=== PATIENT | female | born 1940 | race Caucasian/White ===

== ENCOUNTER → 2018-10-21 | Outpatient (CLI) | payer MEDICARE, OTHER ==
[2018-10-21 18:43] LABS: Source, Urine Clean Catch
[2018-10-21 18:52] LABS: Bilirubin, Urine Neg (Neg); Blood, Urine Neg (Neg); Glucose Qualitative, Urine Neg (Neg); Ketones, Urine Neg (Neg); Leukocyte Esterase, Urine Neg (Neg); Nitrite, Urine Neg (Neg); Protein, Urine Neg (Neg); Urobilinogen, Urine NORM (Normal)
[2018-10-21 18:58] LABS: Appearance, Urine Clear (Clear); Color, Urine Yellow (P-Yellow)
== END | disposition home or self-care (01) ==
LOC: LAB SHORT 14:00 → LAB 14:00
PROVIDERS: Registered Nurse
DX: N39.0 Urinary tract infection, site not specified (principal)
CPT/HCPCS: 81003

== ENCOUNTER 2019-01-24 09:46 | Emergency (ER) | payer OTHER ==
[~2019-01-24] VITALS: Ht 157.5 cm; Wt 81.7 kg
[2019-01-24] MEDS ORDERED: DONE10 PO (12:37)
== END 2019-01-24 12:38 | disposition home or self-care (01) ==
LOC: ER 09:46
DX: S82.042A Displaced comminuted fracture of left patella, initial encounter for closed fracture (principal); F03.90 Unspecified dementia, unspecified severity, without behavioral disturbance, psychotic disturbance, mood disturbance, and anxiety; W19.XXXA Unspecified fall, initial encounter; Z87.891 Personal history of nicotine dependence
CPT/HCPCS: 29505; 73502; 73562-LT; 99283-25

== ENCOUNTER → 2019-03-05 | Outpatient (CLI) | payer OTHER ==
[~2019-03-05] MED LIST: ACET325 PO; Aspir 8181 MG PO; CALMOSEPTINE O3.5 GM TP; DIVA250ER PO; DONE10 PO; DONEPEZIL HCL10 MG PO; FOLI1 PO; IBUP400 PO; MEMA10 PO; Nitrofurantoin50 MG PO; SERT100 PO; TRAZ50 PO
[2019-03-07 13:49] LABS: Source, Urine Clean Catch
[2019-03-07 14:11] LABS: Bilirubin, Urine Neg (Neg); Blood, Urine 2+ (Neg); Glucose Qualitative, Urine Neg (Neg); Ketones, Urine 1+ (Neg); Leukocyte Esterase, Urine 3+ (Neg); Nitrite, Urine Neg (Neg); Protein, Urine 2+ (Neg); Urobilinogen, Urine NORM (Normal)
[2019-03-07 17:23] LABS: Appearance, Urine Hazy (Clear); Color, Urine Yellow (P-Yellow)
[2019-03-07 17:25] LABS: Amorphous Light ({null, 0-Heavy}); Bacteria Many /hpf; Red Blood Cells, Urine 0-2 /hpf (0-2); Squamous Epithelial Cells Rare /hpf (Few)
== END | disposition home or self-care (01) ==
LOC: LAB 08:40 → LAB SHORT 08:40
PROVIDERS: Registered Nurse
DX: N39.0 Urinary tract infection, site not specified (principal)
CPT/HCPCS: 81001; 87086

== ENCOUNTER → 2019-03-24 | Outpatient (CLI) | payer OTHER ==
[2019-03-24 19:31] LABS: Source, Urine Clean Catch
[2019-03-24 19:46] LABS: Bilirubin, Urine Neg (Neg); Blood, Urine 4+ (Neg); Glucose Qualitative, Urine Neg (Neg); Ketones, Urine Neg (Neg); Leukocyte Esterase, Urine 3+ (Neg); Nitrite, Urine Pos (Neg); Protein, Urine 2+ (Neg); Specific Gravity, Urine 1.015 (1.003-1.022); Urobilinogen, Urine NORM (Normal)
[2019-03-24 20:01] LABS: Appearance, Urine Hazy (Clear); Color, Urine Pale Yellow (P-Yellow)
[2019-03-24 20:03] LABS: Bacteria Many /hpf; Mucus Light (0-Heavy); Red Blood Cells, Urine 25-50 /hpf (0-2); Squamous Epithelial Cells Not Seen /hpf (Few); White Blood Cells, Urine TNTC /hpf (0-5)
== END | disposition home or self-care (01) ==
LOC: LAB 19:30 → LAB SHORT 19:30
PROVIDERS: Registered Nurse
DX: N39.0 Urinary tract infection, site not specified (principal)
CPT/HCPCS: 81001; 87077; 87086; 87186

== ENCOUNTER 2019-04-07 15:27 | Emergency (ER) | payer OTHER ==
[~2019-04-07] VITALS: Ht 167.6 cm; Wt 65.8 kg
[~2019-04-07 15:27] MED LIST changes: -ACET325 PO; -Aspir 8181 MG PO; -CALMOSEPTINE O3.5 GM TP; -DIVA250ER PO; -DONEPEZIL HCL10 MG PO; -FOLI1 PO; -IBUP400 PO; -MEMA10 PO; -Nitrofurantoin50 MG PO; -SERT100 PO; -TRAZ50 PO
[2019-04-07] MEDS ORDERED: ACET325 PO (15:58)
[2019-04-07] MEDS ORDERED: CALMOSEPTINE O3.5 GM TP (15:58)
[2019-04-07] MEDS ORDERED: Aspir 8181 MG PO (15:58)
[2019-04-07] MEDS ORDERED: DIVA250ER PO (15:59)
[2019-04-07] MEDS ORDERED: DONEPEZIL HCL10 MG PO (15:59)
[2019-04-07] MEDS ORDERED: IBUP400 PO (16:00)
[2019-04-07] MEDS ORDERED: MEMA10 PO (16:00)
[2019-04-07] MEDS ORDERED: FOLI1 PO (16:00)
[2019-04-07] MEDS ORDERED: SERT100 PO (16:01)
[2019-04-07] MEDS ORDERED: TRAZ50 PO (16:01)
[2019-04-07] MEDS ORDERED: Nitrofurantoin50 MG PO (16:01)
[2019-04-07 17:15] LABS: BASOPHILS ABSOLUTE AUTO 0.07 K/mm3 (0.00-0.23); BASOPHILS PERCENT AUTO 1 % (0-2); EOSINOPHILS ABSOLUTE AUTO 0.03 K/mm3 (0.00-0.68); EOSINOPHILS PERCENT AUTO 0 % (0-6); Hemoglobin 12.4 g/dL (11.5-16.0); IMMATURE GRAN ABSOLUTE AUTO 0.04 K/mm3 (0.00-0.10); IMMATURE GRAN PERCENT AUTO 0 % (0-1); LYMPHOCYTES ABSOLUTE AUTO 1.09 K/mm3 (0.84-5.20); LYMPHOCYTES PERCENT AUTO 8 % (21-46); MONOCYTES ABSOLUTE AUTO 1.06 K/mm3 (0.16-1.47); MONOCYTES PERCENT AUTO 8 % (4-13); Mean Corpuscular HGB 29.5 pg (26.0-34.0); Mean Corpuscular HGB Conc 30.2 g/dL (31.5-36.5); Mean Corpuscular Volume 98 fL (80-100); Mean Platelet Volume 9.5 fL (9.1-12.4); NEUTROPHILS ABSOLUTE AUTO 11.74 K/mm3 (1.96-9.15); NEUTROPHILS PERCENT AUTO 84 % (41-73); Platelet Count 191 K/mm3 (150-400); RDW Coefficient Variation 13.4 % (11.7-14.2); RDW Standard Deviation 47.8 fL (35.1-46.3); White Blood Cell Count 14.03 K/mm3 (4.00-11.30)
[2019-04-07 17:42] LABS: Alanine Aminotransfer (ALT/SGP 9 U/L (12-78); Albumin, Blood 2.8 g/dL (3.4-5.0); Albumin/Globulin Ratio 0.6 (0.8-1.8); Alk Phos 115 U/L (50-136); Anion Gap 5 mmol/L (6-16); Aspartate Aminotrans (AST/SGOT 12 U/L (12-37); Bilirubin, Total 0.4 mg/dL (0.1-1.0); Blood Urea Nitrogen 28 mg/dL (8-24); Bun/Creatinine Ratio 40.9 (12.0-20.0); CO2, Blood 29 mmol/L (21-32); Calcium, Blood 9.1 mg/dL (8.5-10.1); Chloride, Blood 114 mmol/L (98-108); Creatinine, Blood 0.69 mg/dL (0.40-1.00); Globulin, Blood 4.5 g/dL (2.2-4.0); Glomerular Filtration Rate >60 (60-); Glucose, Blood 100 mg/dL (70-99); Sodium, Blood 148 mmol/L (136-145); Total Protein, Blood 7.3 g/dL (6.4-8.2)
[2019-04-07 18:09] LABS: Source, Urine Clean Catch
[2019-04-07 18:12] LABS: Bilirubin, Urine Neg (Neg); Blood, Urine 2+ (Neg); Glucose Qualitative, Urine Neg (Neg); Ketones, Urine 3+ (Neg); Leukocyte Esterase, Urine 2+ (Neg); Nitrite, Urine Neg (Neg); Protein, Urine 2+ (Neg); Urobilinogen, Urine 1+ (Normal)
[2019-04-07 18:40] LABS: Appearance, Urine Clear (Clear); Color, Urine Yellow (P-Yellow)
[2019-04-07 18:43] LABS: Bacteria Mod /hpf; Squamous Epithelial Cells Few /hpf (Few)
[2019-04-07 18:44] LABS: Mucus Light (0-Heavy)
== END 2019-04-07 20:17 | disposition home or self-care (01) ==
LOC: ER 15:27
PROVIDERS: Physician Assistant
DX: N39.0 Urinary tract infection, site not specified (principal); J44.9 Chronic obstructive pulmonary disease, unspecified; F03.90 Unspecified dementia, unspecified severity, without behavioral disturbance, psychotic disturbance, mood disturbance, and anxiety; K21.9 Gastro-esophageal reflux disease without esophagitis; Z79.82 Long term (current) use of aspirin; Z79.899 Other long term (current) drug therapy
CPT/HCPCS: 36415; 71045; 80053; 81001; 83605; 83880; 85025; 87086; 99285-25

== ENCOUNTER 2019-06-09 22:27 | Inpatient (IN) | payer OTHER ==
[~2019-06-09] VITALS: Ht 167.6 cm; Wt 51.2 kg
[~2019-06-09 22:27] MED LIST changes: +ACET325 PO; +Aspir 8181 MG PO; +CALMOSEPTINE O3.5 GM TP; +DIVA250ER PO; +DONEPEZIL HCL10 MG PO; +FOLI1 PO; +IBUP400 PO; +MEMA10 PO; +Nitrofurantoin50 MG PO; +SERT100 PO; +TRAZ50 PO
[2019-06-09 23:09] LABS: BASOPHILS ABSOLUTE AUTO 0.07 K/mm3 (0.00-0.23); BASOPHILS PERCENT AUTO 0 % (0-2); EOSINOPHILS ABSOLUTE AUTO 0.05 K/mm3 (0.00-0.68); EOSINOPHILS PERCENT AUTO 0 % (0-6); Hematocrit 49.9 % (33.0-51.0); Hemoglobin 14.7 g/dL (11.5-16.0); IMMATURE GRAN ABSOLUTE AUTO 0.08 K/mm3 (0.00-0.10); IMMATURE GRAN PERCENT AUTO 1 % (0-1); LYMPHOCYTES ABSOLUTE AUTO 0.79 K/mm3 (0.84-5.20); LYMPHOCYTES PERCENT AUTO 5 % (21-46); MONOCYTES ABSOLUTE AUTO 0.83 K/mm3 (0.16-1.47); MONOCYTES PERCENT AUTO 5 % (4-13); Mean Corpuscular HGB 28.4 pg (26.0-34.0); Mean Corpuscular HGB Conc 29.5 g/dL (31.5-36.5); Mean Corpuscular Volume 96 fL (80-100); Mean Platelet Volume 10.3 fL (9.1-12.4); NEUTROPHILS ABSOLUTE AUTO 14.56 K/mm3 (1.96-9.15); NEUTROPHILS PERCENT AUTO 89 % (41-73); Platelet Count 356 K/mm3 (150-400); RDW Coefficient Variation 16.8 % (11.7-14.2); RDW Standard Deviation 59.7 fL (35.1-46.3); Red Blood Cell Count 5.18 M/mm3 (3.80-5.20); White Blood Cell Count 16.38 K/mm3 (4.00-11.30)
[2019-06-09] MEDS ORDERED: CEFD300 PO (23:19)
[2019-06-09] MEDS ORDERED: HYDROCODONE (23:20)
[2019-06-09] MEDS ORDERED: Zoloft100 MG PO (23:20)
[2019-06-09] MEDS ORDERED: IBUPROFEN (23:21)
[2019-06-09 23:27] LABS: Albumin, Blood 3.5 g/dL (3.4-5.0); Albumin/Globulin Ratio 0.7 (0.8-1.8); Bilirubin, Total 0.3 mg/dL (0.1-1.0); Bun/Creatinine Ratio 22.3 (12.0-20.0); Calcium, Blood 9.7 mg/dL (8.5-10.1); Creatinine, Blood 3.81 mg/dL (0.40-1.00); Potassium, Blood 4.8 mmol/L (3.5-5.5); Total Protein, Blood 8.5 g/dL (6.4-8.2)
[2019-06-10] MEDS ORDERED: B-100 COMPLEX100 MG PO (03:12)
[2019-06-10] MEDS ORDERED: THERA-D2000 UNIT PO (03:12)
--- NOTE | 2019-06-10 04:21 | NUR ---
PERSONAL ASSISTANT SUMMARY [id number] REPORT GIVEN ON PT COMING FROM ER. PT TRANSFERRED VIA STRETCHER. HISTORY OF SEVERE DEMENTIA. PT IS MOSTLY NON-VERBAL WITH GENERALIZED WEAKNESS. PT RESPONDS TO VERBAL STIMULI AND PRESSURE STIMULI. PT BECAME AGITATED WHEN STAFF PERFORMED CARE BY SQUEEZING STAFF'S HAND TIGHTLY AND NOT LETTING GO. SMALL SKIN TEAR ON DORSAL L WRIST FOUND UPON ADMISSION. SEE PICTURE IN PT CHART. PT HAS NOT VOIDED SINCE ER ADMISSION. CURRENTLY NPO. PT APPEARS TO BE COMFORTABLY RESTING IN BED. NO DISTRESS NOTED. NS CURRENTLY RUNNING. WILL CONTINUE TO MONITOR.
--- NOTE | 2019-06-10 10:25 | NUR ---
Received call from Pt's bedside RN Allegra and discussed case. Allegra reports Pt's son called and would like to have discussion regarding goals of care. Pt resting in bed upon arrival. ST in working with Pt and this RN observed. ST reports plan is to keep Pt NPO. Pt pocketing food and not swallowing. Pt appears moderately anxious as evidenced by sitting up in bed and picking at blankets. Pt is mostly non verbal with occasional attempt to vocalize by saying no. Pt currently in [place] restraint. Allegra will offer activity apron to Pt. Palliative Care will F/U with Carlo Vargas and Pt's son.
--- NOTE | 2019-06-10 14:27 | NUR ---
Received call from Pt's bedside RN Allegra reporting family is visit and would like to speake with Palliative Care. Pt's son Iain, Pt's daughter in law, and Pt's granddaughter at bedside. Pt appears comfortable with no S/S of distress at this time. Pt is still mostly non verbal with an occasional yes or no being vocalized. Engaged in therapeutic discussion regarding goals of care. Listened as son Iain reports having discussions with Pt's facility nurse Sunitha over the last couple of weeks regarding hospice. Pt has shown significant decline over the last 6 months. Iain reports Pt has been experiencing recurrent UTI's, weighed 138 pounds 6 months ago and current hospital weight is 113 pounds. Pt requires assistance with dressing, feeding, bathing, and is incontinent of bowel and bladder. Iain reports Pt's appetite has decreased and her swallow ability has also significantly decreased. He reports staff is providing pureed diet and ensure drinks. Pt is chair bound and requires assistance with transfers. Pt has not had ability to have meaningful conversation in the last 6 months. Iain expresses concerns regarding quality of life and stress that occurs for Pt when in the hospital. Educated family on hospice as an option anytime family decides changing goals of care. Suggested giving current treatment some time to see if Pt improves. Iain reports being uncertain of any significant improvement considering decline has been significant well before this hospital stay. Family expresses appreciation of visit and report no other concerns at this time. PPS 30% [place] 40% FAST 7C ADLs 6/6 History of multiple UTIs, dysphagia, and 18% weight loss in last 6 months. Pt appears appropriate for hospice if family chooses this option. Palliative Care will remain available.
--- NOTE | 2019-06-10 16:24 | NUR ---
PATIENT CONFUSED AND DISORIENTED. REMAINS IN EDDIE VEST FOR SAFETY PATIENT IS IMPULSIVE AND ATTEMPTS TO JUMP OUT OF BED UNASSISTED AND PULL AT IV LINE. PATIENT EASILY AGGITATED AND NEEDS A MIN OF 2 STAFF MEMBERS FOR CHANGES AND REPOSITIONS, OR ANYTHING THAT INVOLVES PHYSICAL TOUCH OF THE PATIENT. VITALS ARE STABLE. PATIENT DID URINATE THIS AFTERNOON; FIRST TIME SINCE ADMIT. FAMILY LEFT BEDSIDE ABOUT 30 MINUTES AGO. THE PATIENT IS IN BED AT THIS TIME. WILL CONTINUE TO MONITOR AND PROVIDE CARE NEEDED.
[2019-06-11 04:54] LABS: BASOPHILS ABSOLUTE AUTO 0.07 K/mm3 (0.00-0.23); BASOPHILS PERCENT AUTO 1 % (0-2); EOSINOPHILS ABSOLUTE AUTO 0.37 K/mm3 (0.00-0.68); EOSINOPHILS PERCENT AUTO 5 % (0-6); Hematocrit 37.2 % (33.0-51.0); Hemoglobin 11.2 g/dL (11.5-16.0); IMMATURE GRAN ABSOLUTE AUTO 0.06 K/mm3 (0.00-0.10); IMMATURE GRAN PERCENT AUTO 1 % (0-1); LYMPHOCYTES ABSOLUTE AUTO 1.48 K/mm3 (0.84-5.20); LYMPHOCYTES PERCENT AUTO 20 % (21-46); MONOCYTES ABSOLUTE AUTO 0.52 K/mm3 (0.16-1.47); MONOCYTES PERCENT AUTO 7 % (4-13); Mean Corpuscular HGB 28.7 pg (26.0-34.0); Mean Corpuscular HGB Conc 30.1 g/dL (31.5-36.5); Mean Corpuscular Volume 95 fL (80-100); Mean Platelet Volume 11.1 fL (9.1-12.4); NEUTROPHILS ABSOLUTE AUTO 4.92 K/mm3 (1.96-9.15); NEUTROPHILS PERCENT AUTO 66 % (41-73); Platelet Count 185 K/mm3 (150-400); RDW Coefficient Variation 17.2 % (11.7-14.2); RDW Standard Deviation 59.5 fL (35.1-46.3); White Blood Cell Count 7.42 K/mm3 (4.00-11.30)
[2019-06-11 05:06] LABS: Bun/Creatinine Ratio 33.7 (12.0-20.0); Calcium, Blood 7.9 mg/dL (8.5-10.1); Creatinine, Blood 1.99 mg/dL (0.40-1.00); Potassium, Blood 3.6 mmol/L (3.5-5.5)
--- NOTE | 2019-06-11 06:10 | NUR ---
SHIFT SUMMARY NO ACUTE CHANGES TONIGHT. PT IS ALERT TO VERB STIMULI AND ORIENTED TO SELF ONLY. NONVERBAL WITH OCCASIONAL MOANING AND MUMBLES. PT IN EDDIE D/T HIGH FALL RISK AND SEV DEMENTIA. PT ALSO OBSERVED PULLING AT IV LINES AND WAS REDIRECTED WITH ACTIVITY APRON UNTIL SHE FELL ASLEEP. INCONTINENT OF URINE SEVERAL TIMES TONIGHT. IV DEXTROSE RUNNING @ 100 ML/HR. NO OTHER CHANGES TO REPORT. WILL CONT TO MONITOR AND PROVIDE CARE UNTIL PRESUMED BY ONCOMING RN.
--- NOTE | 2019-06-11 07:12 | NUR ---
ASSUMED CARE OF PATIENT. CURRENTLY SHE IS STILL IN THE EDDIE VEST. THIS IS UP AT 0930 TODAY. WILL REASSESS FOR CONTINUED NEED OF EDDIE VEST. EVEN WITH FAMILY IN THE ROOM THIS WAS AN ISSUE YESTERDAY. PATIENT FAMILY SPOKE WITH PALLIATIVE CARE YESTERDAY TO UNDERSTAND HER OPTIONS FROM HERE ON OUT. THEY WOULD LIKE TO SEE THE DOCTOR OF FACILITATE CARE OF THE PATIENT AND ASSESS WHAT THEIR CONTINUED CARE PLAN WILL LOOK LIKE OUTSIDE OF THE HOSPITAL.
--- NOTE | 2019-06-11 11:37 | NUR ---
SPOKE WITH [facility] WHERE THE PATIENT RESIDES. THIS WAS OKAYED BY THE PATIENT, AND HER FAMILY MEMBERS. CURRENTLY WE ARE AWAITING A "PLAN OF ACTION" FOR THE PATIENT ON IF SHE IMPROVES. FAMILY IS IN CLOSE CONTACT WITH THE FACILITY WELL CHECKING IN FOR UPDATES WITH THE DOCTOR DAILY (THEY LIVE IN [place]) SO WE ARE WAITING FOR THE NEXT STEP.
--- NOTE | 2019-06-11 16:34 | NUR ---
shift summary patient is still combative. no acute concerns at this time. awaiting the plan of care between the doctor and her facility as well as her family. her son is her healthcare proxy and is in close contact with the doctor and the facility at this time to make a plan of care for the patient. unknown status at this time as to the current plan. patient awaiting a re-evaluation by speech therapy.
[2019-06-12 06:20] LABS: Anion Gap 6 mmol/L (6-16); Blood Urea Nitrogen 40 mg/dL (8-24); Bun/Creatinine Ratio 45.3 (12.0-20.0); CO2, Blood 25 mmol/L (21-32); Calcium, Blood 8.4 mg/dL (8.5-10.1); Chloride, Blood 117 mmol/L (98-108); Creatinine, Blood 0.88 mg/dL (0.40-1.00); Glomerular Filtration Rate >60 (60-); Glucose, Blood 80 mg/dL (70-99); Potassium, Blood 3.7 mmol/L (3.5-5.5); Sodium, Blood 148 mmol/L (136-145)
--- NOTE | 2019-06-12 06:26 | NUR ---
SHIFT SUMMARY: VSS. AFEB. REMAINED IN EDDIE VEST ALL NIGHT. SPENSER WELL. NO SIGNS OF PAIN. BECOMES AGITATED WITH CARES- HITTING AND KICKING STAFF. HAS BEEN ASLEEP MUCH OF NIGHT. APPEARS COMFORTABLE. BED LOW, BED ALARM ON.
[2019-06-12] MEDS ORDERED: MIRALAX17 GM PO (14:27)
--- NOTE | 2019-06-12 17:16 | NUR ---
PATIENT DISCHARGE: PATIENT DISCHARGED TO HOME ([facility]) WITH HOSPICE THIS SHIFT. MEDICATION RECONCILIATION COMPLETED; DISCHARGE PACKET FAXED TO [facility]. PATIENT DEPARTED MEDICAL FLOOR VIA [facility] WITH KRISTA AT [id number]. PATIENT DEPARTED [facility] VIA [facility]. [facility] NOTIFIED OF DISCHARGE.
== END 2019-06-12 16:50 | disposition hospice, home (50) | DRG 871 ==
LOC: ER 22:27 → MEDS 06-10 01:17 → ENPENDDIS 06-12 12:08 → MEDS 06-12 16:50
PROVIDERS: Emergency Medicine; Internal Medicine; Nurse Practitioner Acute Care; ADMIT Internal Medicine
DX: A41.9 Sepsis, unspecified organism (principal); G93.41 Metabolic encephalopathy; N39.0 Urinary tract infection, site not specified; N17.9 Acute kidney failure, unspecified; F03.91 Unspecified dementia, unspecified severity, with behavioral disturbance; E87.0 Hyperosmolality and hypernatremia; R65.20 Severe sepsis without septic shock; I10 Essential (primary) hypertension; R13.10 Dysphagia, unspecified; Z66 Do not resuscitate; Z79.82 Long term (current) use of aspirin
CPT/HCPCS: 36415; 80048; 80053; 83605; 84295; 85025; 87040; 92526; 92610; 93005; 93010; 96361; 96365; 99285-25; J0696; J1650; J7030; J7040; J7070; J7120